=== PATIENT | female | born 1985 | race Caucasian/White ===

== ENCOUNTER → 2023-07-25 15:10 | Outpatient (REF) | payer OTHER, SELFPAY | LOC: PNTC 15:10 | PROVIDERS: ATTENDING PHYSICIAN Obstetrics & Gynecology | DX: O09.529 Supervision of elderly multigravida, unspecified trimester (principal) | CPT/HCPCS: 36415; 76801; 76813 ==

== ENCOUNTER → 2023-08-17 13:16 | Outpatient (REF) | payer OTHER, SELFPAY | LOC: PNTC 13:16 | PROVIDERS: ATTENDING PHYSICIAN Obstetrics & Gynecology | DX: O99.119 Other diseases of the blood and blood-forming organs and certain disorders involving the immune mechanism complicating pregnancy, unspecified trimester (principal) | CPT/HCPCS: 76805 ==

== ENCOUNTER → 2023-09-11 15:17 | Outpatient (REF) | payer OTHER, SELFPAY | LOC: PNTC 15:17 | PROVIDERS: ATTENDING PHYSICIAN Obstetrics & Gynecology | DX: G35 Multiple sclerosis (principal) | CPT/HCPCS: 76811 ==

== ENCOUNTER → 2023-10-19 08:40 | Outpatient (REF) | payer OTHER, SELFPAY ==
--- NOTE | 2023-10-19 08:48 | PN.DIAED06 ---
Meal Plan - Gestational
- Breakfast
Gestational Diabetes Meal Plan Name: 1800 calories
Breakfast - Total Carbohydrate (grams): 30
Breakfast - Starch Carbohydrate: 1
Breakfast - Fruit Carbohydrate: 0
Breakfast - Milk Carbohydrate: 1
Breakfast - Nonstarchy Vegetables: Yes
Breakfast - Meat/Protein: 1
Breakfast - Fat: 2
- Morning Snack
Morning Snack - Total Carbohydrate (grams): 30
Morning Snack - Starch Carbohydrate: 1
Morning Snack - Fruit Carbohydrate: 0
Morning Snack - Milk Carbohydrate: 1
Morning Snack - Nonstarchy Vegetables: Yes
Morning Snack - Meat/Protein: 0.5
Morning Snack - Fat: 0
- Lunch
Lunch - Total Carbohydrate (grams): 45
Lunch - Starch Carbohydrate: 2
Lunch - Fruit Carbohydrate: 1
Lunch - Milk Carbohydrate: 0
Lunch - Nonstarchy Vegetables: Yes
Lunch - Meat/Protein: 2
Lunch - Fat: 1
- Afternoon Snack
Afternoon Snack - Total Carbohydrate (grams): 30
Afternoon Snack - Starch Carbohydrate: 1
Afternoon Snack - Fruit Carbohydrate: 1
Afternoon Snack - Milk Carbohydrate: 0
Afternoon Snack - Nonstarchy Vegetables: Yes
Afternoon Snack - Meat/Protein: 1
Afternoon Snack - Fat: 0
- Dinner
Dinner - Total Carbohydrate (grams): 45
Dinner - Starch Carbohydrate: 2
Dinner - Fruit Carbohydrate: 0
Dinner - Milk Carbohydrate: 1
Dinner - Nonstarchy Vegetables: Yes
Dinner - Meat/Protein: 2
Dinner - Fat: 2
- Evening Snack
Evening Snack - Total Carbohydrate (grams): 30
Evening Snack - Starch Carbohydrate: 1
Evening Snack - Fruit Carbohydrate: 0
Evening Snack - Milk Carbohydrate: 1
Evening Snack - Nonstarchy Vegetables: Yes
Evening Snack - Meat/Protein: 1
Evening Snack - Fat: 1
--- NOTE | 2023-10-19 14:37 | PN.DIAED02 ---
Referral
DSME Class Series Code: GDM
Referred For: Gestational Diabetes Self-Management Training, Management of Diabetes During , Self-Blood Glucose Monitoring
PHI Release Authorization Form Signed: Yes
Patient Problems:
Current Active Problems
Problem Status Onset
Gestational diabetes mellitus in , unspecified control ~10/18/23
Demographic
(1) Gestational diabetes mellitus in , unspecified control
Status: Acute Onset Date: ~10/18/23
Qualifiers:
Gestational diabetes mellitus control: diet-controlled Trimester: second trimester Qualified Code(s): O24.410 - Gestational diabetes mellitus in , diet controlled
Code(s): O24.419 - Gestational diabetes mellitus in , unspecified control
Patient's primary language-: Vincentian
Education: College degree
Occupation: Professional
Hours Worked/Week: > 40
Shift: Day
Care Plan
- Education Needs
Patient Education Needs: Monitoring, Nutritional management
Recommended Diabetes Training Program based on assessment: Gestational Diabetes Management
- Plan of Care
Plan of Care:
Met with Ms. Fuchs today, , currently at 24 weeks of gestation, here today for medical nutrition therapy.
Explained glucose metabolism in body and what occurs during to cause increase blood sugar. Discussed importance of keeping BS well controlled to avoid complications to the baby during and after (macrosomia, hypoglycemia). Explained
to Susan that she is at increased risk of developing T2DM in the future.
Provided Susan with a glucose monitor-Contour Next Ez. Reviewed proper testing technique, testing sites and testing pattern. She is aware to test FBS and 2 hr pp each meal. Expected results for FBS <95 mg/dl and 2 hr pp <120 mg/dl.
Provided with 1800 bob GDM meal plan. She was educated on how to read a nutritional fact label and look at total CHO in relation to serving size. No fruit or fruit juice until noontime. Provided with handout on snacks as well as 'Choose Your Foods'
booklet. Noted for blood sugar of 97 2 hrs after breakfast. A Log sheet was provided for her to record results, she will send her 4 day meal log with all her FBG and 2hr Post prandial glucose numbers to this office for review. In addition, she will
send all her glucose readings to [facility] every Monday. She was encouraged to keep a regular activity schedule and will reach out should she require insulin.
A script for Contour Next Ez test strips and Lancets was sent to [facility] in [place].
== END ==
LOC: DES 08:40
PROVIDERS: ATTENDING PHYSICIAN Obstetrics & Gynecology
DX: O24.419 Gestational diabetes mellitus in pregnancy, unspecified control (principal)
CPT/HCPCS: 99078

== ENCOUNTER → 2023-10-25 13:11 | Outpatient (REF) | payer OTHER, SELFPAY | LOC: PNTC 13:11 | PROVIDERS: ATTENDING PHYSICIAN Obstetrics & Gynecology | DX: O09.519 Supervision of elderly primigravida, unspecified trimester (principal); O99.350 Diseases of the nervous system complicating pregnancy, unspecified trimester | CPT/HCPCS: 76816 ==

== ENCOUNTER → 2023-11-22 07:04 | Outpatient (REF) | payer OTHER, SELFPAY | LOC: PNTC 07:04 | PROVIDERS: ATTENDING PHYSICIAN Obstetrics & Gynecology | DX: O09.519 Supervision of elderly primigravida, unspecified trimester (principal); O99.350 Diseases of the nervous system complicating pregnancy, unspecified trimester | CPT/HCPCS: 76816 ==

== ENCOUNTER → 2023-12-20 15:08 | Outpatient (REF) | payer OTHER, SELFPAY | LOC: PNTC 15:08 | PROVIDERS: ATTENDING PHYSICIAN Obstetrics & Gynecology | DX: O99.519 Diseases of the respiratory system complicating pregnancy, unspecified trimester (principal); G35 Multiple sclerosis | CPT/HCPCS: 76816 ==

== ENCOUNTER → 2024-01-17 15:16 | Outpatient (REF) | payer OTHER, SELFPAY | LOC: PNTC 15:16 | PROVIDERS: ATTENDING PHYSICIAN Obstetrics & Gynecology | DX: O09.519 Supervision of elderly primigravida, unspecified trimester (principal); O99.350 Diseases of the nervous system complicating pregnancy, unspecified trimester | CPT/HCPCS: 76816 ==

== ENCOUNTER 2024-01-25 19:27 | Inpatient (IN) | payer OTHER, SELFPAY ==
[2024-01-25 19:39] VITALS: BP 112/54; BMI 33.0
[2024-01-25 19:50] LABS: Glucose - Point of Care 114 mg/dl (70-99)
[2024-01-25 20:43] LABS: % Basophils 0.2 % (0-2); % Eosinophils 1.9 % (0-6); % Immature Granulocytes 0.6 % (0-0.5); % Lymphocytes 16.5 % (20.5-51.1); % Monocytes 9.6 % (1.7-9.3); % Neutrophils 71.2 % (42.2-75.2); Absolute Eosinophils 0.2 10^3/uL (0-0.7); Absolute Immature Granulocytes 0.1 10^3/uL (0-0.05); Absolute Lymphocytes 1.8 10^3/uL (1.2-3.4); Absolute Neutrophils 7.7 10^3/uL (1.4-6.5); Hematocrit 30.7 % (37.0-47.0); Hemoglobin 10.8 g/dL (12.0-16.0); Mean Corp Hgb Conc. 35.2 g/dL (33.0-37.0); Mean Corpuscular Hgb 30.9 pg (27.0-31.0); Mean Platelet Volume 10.1 fL (7.4-10.4); Nucleated Red Blood Cells % 0 %; Platelet Count 348 10^3/uL (130-400); Red Blood Cell Count 3.49 10^6/uL (4.20-5.40); White Blood Cell Count 10.8 10^3/uL (4.8-10.8)
[2024-01-25] MEDS: LR 1000 IV (21:16)
[2024-01-25] MEDS: CYTOTEC 25 MICROGRAM VAG (22:13)
[2024-01-26 00:02] LABS: Glucose - Point of Care 101 mg/dl (70-99)
[2024-01-26] MEDS: LR 1000 IV (00:18)
[2024-01-26 04:02] LABS: Glucose - Point of Care 93 mg/dl (70-99)
[2024-01-26] MEDS: CYTOTEC 25 MICROGRAM PO (04:52)
[2024-01-26 07:55] LABS: Glucose - Point of Care 87 mg/dl (70-99)
[2024-01-26] MEDS: CYTOTEC PO ×3 (10:36→17:19)
[2024-01-26] MEDS: SUBLIMAZE 100 MCG EPIDURAL (11:18)
[2024-01-26] MEDS: FENTANYL/BUPIVACAINE 100 EPIDURAL (11:18)
[2024-01-26 11:44] LABS: Glucose - Point of Care 89 mg/dl (70-99)
[2024-01-26 14:59] LABS: Glucose - Point of Care 90 mg/dl (70-99)
[2024-01-26] MEDS: MOTRIN 600 MG PO (18:01)
[2024-01-27 05:42] LABS: Hemoglobin 10.2 g/dL (12.0-16.0)
[2024-01-27] MEDS: PRENATAL PLUS 1 TABLET PO (07:56)
[2024-01-27] MEDS: MOTRIN 600 MG PO ×3 (08:00→21:17)
[2024-01-27] MEDS: FEOSOL 325 MG PO (09:50)
[2024-01-28] MEDS: PRENATAL PLUS 1 TABLET PO (08:08)
[2024-01-28] MEDS: FEOSOL 325 MG PO (08:08)
[2024-01-30 11:18] LABS: Syphilis/T. pallidum Ab Reflex Negative (Negative)
== END 2024-01-28 11:37 | disposition home or self-care (01) | DRG 806 ==
LOC: LDRP 19:27
PROVIDERS: Obstetrics & Gynecology; ADMITTING PHYSICIAN Student in an Organized Health Care Education/Training Program
PROC: 3E0P7VZ Introduction of Hormone into Female Reproductive, Via Natural or Artificial Opening (ICD-10-PCS; 2024-01-25)
PROC: 3E0E77Z Introduction of Electrolytic and Water Balance Substance into Products of Conception, Via Natural or Artificial Opening (ICD-10-PCS; 2024-01-26)
PROC: 10907ZC Drainage of Amniotic Fluid, Therapeutic from Products of Conception, Via Natural or Artificial Opening (ICD-10-PCS; 2024-01-26)
PROC: 6A550ZT Pheresis of Cord Blood Stem Cells, Single (ICD-10-PCS; 2024-01-26)
PROC: 10H07YZ Insertion of Other Device into Products of Conception, Via Natural or Artificial Opening (ICD-10-PCS; 2024-01-26)
PROC: 10E0XZZ Delivery of Products of Conception, External Approach (ICD-10-PCS; 2024-01-26)
PROC: 0KQM0ZZ Repair Perineum Muscle, Open Approach (ICD-10-PCS; 2024-01-26)
DX: O24.420 Gestational diabetes mellitus in childbirth, diet controlled (principal); O99.354 Diseases of the nervous system complicating childbirth; Z37.0 Single live birth; Z3A.39 39 weeks gestation of pregnancy; O70.1 Second degree perineal laceration during delivery; O43.123 Velamentous insertion of umbilical cord, third trimester; G35 Multiple sclerosis; O76 Abnormality in fetal heart rate and rhythm complicating labor and delivery; O90.81 Anemia of the puerperium; D64.9 Anemia, unspecified
CPT/HCPCS: 88307; 36415; 82962; 85014; 85018; 85025; 86780; 86850; 86900; 86901